=== PATIENT | female | born 1985 | race African-American/Black ===

== ENCOUNTER 2022-07-23 14:20 | Inpatient (IN) | payer OTHER ==
[2022-07-23 15:29] VITALS: BMI 39.2
[2022-07-23] MEDS: ELECTROLYTE-148 SOLN 1,000 ML IV SCH ×2 (15:45→21:00)
[2022-07-23] MEDS ORDERED: OXYTOCIN 30 UNITS in 0.9% NS 30 UNIT/500 ML INFUS.BAG IVPB ONE (15:58)
[2022-07-23] MEDS ORDERED: OXYTOCIN 30 UNITS in 0.9% NS 30 UNIT/500 ML INFUS.BAG IVPB SCH (16:00)
[2022-07-23 17:03] LABS: BASO % 0.2 % (0-2.0); EOS % 0.2 % (0-4.5); HEMATOCRIT 29.3 % (32.4-45.2); HEMOGLOBIN 9.5 GM/dL (10.7-15.3); LYMPH % 24.3 % (8-40); MCH 22.5 pg (25.7-33.7); MCHC 32.6 g/dl (32.0-36.0); MEAN PLT VOLUME 9.4 fl (7.5-11.1); MONO % 6.8 % (3.8-10.2); NEUT % 68.5 % (42.8-82.8); PLATELET COUNT 163 10^3/uL (134-434); RBC 4.25 M/mm3 (3.60-5.2); RDW 18.1 % (11.6-15.6); WHITE BLOOD COUNT 5.6 K/mm3 (4.0-10.0)
[2022-07-23 17:22] LABS: ACTIVATED PTT 27.6 SECONDS (25.2-36.5); INR 1.03 (0.83-1.09)
[2022-07-23 17:28] LABS: BLOOD UREA NITROGEN 7.2 mg/dL (7-18); CALCIUM 8.9 mg/dL (8.5-10.1)
[2022-07-23 17:32] LABS: CREATININE 0.4 mg/dL (0.55-1.3)
[2022-07-23] MEDS ORDERED: FENTANYL/BUPIVACAINE/NS/PF - PCEA - 50 ML DISP.SYRIN EP ONE (20:23)
[2022-07-23] MEDS ORDERED: NALOXONE HCL 0.4 MG/ML VIAL IVPUSH PRN (20:35)
[2022-07-23] MEDS ORDERED: FENTANYL CITRATE/PF 50 MCG/ML VIAL ONE (20:36)
[2022-07-23] MEDS ORDERED: BUPIVACAINE HCL/PF 0.25% (2.5MG/ML) 10 ML VIAL ONE (20:37)
[2022-07-23] MEDS: FENTANYL/BUPIVACAINE/NS/PF - PCEA - 50 ML DISP.SYRIN EP SCH (20:55)
[2022-07-24] MEDS ORDERED: FENTANYL/BUPIVACAINE/NS/PF - PCEA - 50 ML DISP.SYRIN EP ONE ×2 (00:13→03:17)
[2022-07-24] MEDS: FENTANYL/BUPIVACAINE/NS/PF - PCEA - 50 ML DISP.SYRIN EP SCH ×2 (00:15→03:21)
[2022-07-24] MEDS ORDERED: DEXTROSE 5%-WATER - 250 ML IVPB ONE (02:45)
[2022-07-24] MEDS: ELECTROLYTE-148 SOLN 1,000 ML IV SCH (03:42)
[2022-07-24] MEDS ORDERED: METHYLERGONOVINE MALEATE 0.2 MG/1 ML AMP IM PRN (05:39)
[2022-07-24] MEDS ORDERED: BENZOCAINE 20% 57 GM BOTTLE TP PRN (05:39)
[2022-07-24] MEDS ORDERED: BENZOCAINE 28 GM HEMORRHOIDAL OINTMENT TP PRN (05:39)
[2022-07-24] MEDS ORDERED: BISACODYL 10 MG SUPP.RECT RC PRN (05:39)
[2022-07-24] MEDS ORDERED: oxyCODONE HCL 5 MG TABLET PO PRN (05:39)
[2022-07-24] MEDS ORDERED: ACETAMINOPHEN 325 MG TABLET (FP) PO PRN (05:39)
[2022-07-24] MEDS ORDERED: WITCH HAZEL 50% (TUCKS) 40 PAD/JAR PAD TP PRN (05:39)
[2022-07-24] MEDS ORDERED: OXYTOCIN 20 UNITS in 0.9% NS 20 UNIT/1,000 ML INFUS.BAG IV SCH (05:45)
[2022-07-24] MEDS: FERROUS SO4 325 MG TABLET (FP) PO SCH ×3 (08:55→17:58)
[2022-07-24] MEDS: IBUPROFEN 600 MG TABLET (FP) PO PRN ×3 (08:55→23:07)
[2022-07-24] MEDS: PRENATAL VITAMINS W/ FOLIC ACID TABLET (FP) PO SCH (10:52)
[2022-07-25 07:43] LABS: BASO % 0.1 % (0-2.0); EOS % 0.1 % (0-4.5); HEMATOCRIT 25.9 % (32.4-45.2); HEMOGLOBIN 8.5 GM/dL (10.7-15.3); LYMPH % 20.6 % (8-40); MCH 22.9 pg (25.7-33.7); MEAN CELL VOLUME 69.3 fl (80-96); MEAN PLT VOLUME 9.6 fl (7.5-11.1); MONO % 5.3 % (3.8-10.2); NEUT % 73.9 % (42.8-82.8); PLATELET COUNT 177 10^3/uL (134-434); RBC 3.74 M/mm3 (3.60-5.2); RDW 18.3 % (11.6-15.6); WHITE BLOOD COUNT 11.2 K/mm3 (4.0-10.0)
[2022-07-25] MEDS: IBUPROFEN 600 MG TABLET (FP) PO PRN (08:55)
[2022-07-25] MEDS: FERROUS SO4 325 MG TABLET (FP) PO SCH ×3 (08:55→17:08)
[2022-07-25] MEDS: PRENATAL VITAMINS W/ FOLIC ACID TABLET (FP) PO SCH (10:57)
[2022-07-25] MEDS: guaiFENesin 200 MG/10 ML 10 ML UNIT-DOSE CUPS PO SCH ×2 (17:08→23:56)
[2022-07-25] MEDS ORDERED: guaiFENesin/CODEINE 10 ML UNIT-DOSE CUPS PO SCH (18:00)
[2022-07-25] MEDS ORDERED: SENNOSIDES/DOCUSATE COMBO (SENNA PLUS) TABLET (UD) PO PRN (22:00)
[2022-07-26] MEDS: guaiFENesin 200 MG/10 ML 10 ML UNIT-DOSE CUPS PO SCH ×2 (06:18→12:05)
[2022-07-26] MEDS: FERROUS SO4 325 MG TABLET (FP) PO SCH ×2 (09:00→12:05)
[2022-07-26] MEDS: PRENATAL VITAMINS W/ FOLIC ACID TABLET (FP) PO SCH (09:11)
[2022-07-26] MEDS: IBUPROFEN 600 MG TABLET (FP) PO PRN (09:12)
[2022-07-26 10:11] VITALS: BP 129/72; PULSE 72; RESP 18; TEMP 97.9
== END 2022-07-26 13:19 | disposition home or self-care (01) | DRG 560 ==
LOC: JLDR 14:20 → J3W 07-24 08:00
PROVIDERS: ADMIT Obstetrics & Gynecology; ATTEND Obstetrics & Gynecology
PROC: 0HQ9XZZ Repair Perineum Skin, External Approach (ICD-10-PCS; principal; 2022-07-24)
PROC: 10E0XZZ Delivery of Products of Conception, External Approach (ICD-10-PCS; 2022-07-24)
DX: O24.425 Gestational diabetes mellitus in childbirth, controlled by oral hypoglycemic drugs (principal); O70.0 First degree perineal laceration during delivery; Z3A.39 39 weeks gestation of pregnancy; Z37.0 Single live birth
CPT/HCPCS: 36415; 80048; 82962; 85025; 85610; 85730; 86780; 86850; 86900; 86901; C9803-CS; U0003; U0005